=== PATIENT | male | born 1945 | race Caucasian/White ===

== ENCOUNTER → 2020-08-25 08:40 | Outpatient (CLI) | payer MEDICARE, OTHER, SELFPAY ==
--- NOTE | 2020-08-25 | DI.MRI.S_ITS ---
PROCEDURE: MR BRAIN (IAC) WWO CON INDICATIONS: Sensorineural hearing loss, unilateral, right ear, TECHNIQUE: Noncontrast sagittal T1 spin echo, axial FLAIR, axial gradient echo, axial diffusion and ADC through the brain. Axial thin-slice 3D CISS, coronal TruFISP, axial T1 spin echo with fat saturation through the internal auditory canals. After the administration of contrast, thin slice axial and coronal T1 spin echo with fat saturation through the internal auditory canals, and axial T1 spin echo with fat saturation through the brain. COMPARISON: [facility], MR, BRAIN WITH AND WITHOUT CONTRAS, 11/14/2011, 10:01. FINDINGS: Image quality: Excellent. Cerebellopontine angles: No cerebellopontine angle masses. Inner ear structures appear normally formed. No suspicious enhancement in the internal auditory canal or along the course of the 7th cranial nerve. CSF spaces: Ventricles are normal in size and shape. No extra-axial fluid collections. Basal cisterns are patent. Brain: No intracranial bleeds or mass effects. There is mild, diffuse cerebral volume loss. There are xfaa-tg-detbcila periventricular and subcortical white matter chronic microvascular ischemic changes. Calderon-white matter interface is intact. No abnormal intracranial enhancement. Diffusion weighted images demonstrate no acute ischemic insults. Brainstem appears normal. Normal intravascular flow voids are present. Skull and face: Calvarial marrow signal is normal. Orbits appear normal. Sinuses: Sinuses and mastoids are clear. IMPRESSION: 1. No evidence of vestibular schwannoma. 2. No acute intracranial disease process. 3. No abnormal intracranial mass or mass effect. 4. No suspicious postcontrast enhancement. 5. Mild, diffuse cerebral volume loss. 6. Rqhe-ds-ktnnksfj periventricular and subcortical white matter chronic microvascular ischemic change. Dictated by: Berkley Chan MD, PhD on 08/25/2020 at 12:30 Approved by: Berkley Chan MD, PhD on 08/25/2020 at 12:34
== END ==
PROVIDERS: PCP Family Medicine; Referring Provider Family Medicine; Visit Provider Otolaryngology
DX: H90.41 Sensorineural hearing loss, unilateral, right ear, with unrestricted hearing on the contralateral side (principal)
CPT/HCPCS: 70553

== ENCOUNTER → 2021-02-23 12:45 | Outpatient (CLI) | payer MEDICARE, OTHER, SELFPAY ==
--- NOTE | 2021-02-23 | DI.RAD.S_ITS ---
PROCEDURE: FL BARIUM SWALLOW W AIR COMPARISON: None. INDICATIONS: Other dysphagia FINDINGS: No definite focal stricture. No mucosal abnormalities identified. There is a small hiatal hernia. There is esophageal dysmotility and prolonged esophageal clearance. Normal transit of a calibrated barium tablet. IMPRESSION: Esophageal dysmotility. Small hiatal hernia. Dictated by: Delfino Reich M.D. on 02/23/2021 at 14:41 Approved by: Delfino Reich M.D. on 02/23/2021 at 14:44
== END ==
PROVIDERS: PCP Family Medicine; Referring Provider Family Medicine; Visit Provider Family Medicine
DX: R13.19 Other dysphagia (principal); K22.4 Dyskinesia of esophagus; K44.9 Diaphragmatic hernia without obstruction or gangrene
CPT/HCPCS: 74221

== ENCOUNTER → 2021-07-19 08:01 | Outpatient (CLI) | payer MEDICARE, OTHER, SELFPAY ==
--- NOTE | 2021-07-19 08:03 | DI.RAD.S_ITS ---
PROCEDURE: FL WRIST INJECTION MR/CT LT INDICATIONS: SCAPHOLUNATE INSTABILITY,LEFT WRIST COMPARISON: [facility], MR, MR WRIST LT W CON, 07/19/2021, 8:41. TECHNIQUE: After informed consent had been obtained, the wrist was examined fluoroscopically, and a site chosen for injection of the radiocarpal compartment from a dorsal approach. Skin was prepped and draped in a sterile fashion and 1% lidocaine infiltrated from the skin down to the articular surface. A hypodermic needle was then introduced into the articular space and a modest amount of contrast medium was instilled confirming intra-articular needle tip placement. This was followed by approximately 4 mL of a dilute gadolinium solution. Needle was removed and dressing was applied. The patient experienced no complications throughout the procedure and left the fluoroscopic suite in no apparent distress. FINDINGS: A single fluoroscopic spot image demonstrates intra-articular location to injected iodinated contrast. IMPRESSION: Successful fluoroscopic-guided administration of dilute Gadolinium solution for wrist MR arthrogram. Dictated by: Malik Poole M.D. on 07/19/2021 at 11:19 Approved by: Malik Poole M.D. on 07/19/2021 at 11:19
--- NOTE | 2021-07-19 08:03 | DI.MRI.S_ITS ---
PROCEDURE: MR WRIST LT W CON INDICATIONS: SCAPHOLUNATE INSTABILITY,LEFT WRIST TECHNIQUE: After the administration of 3-4 mL of dilute intra-articular Gadolinium contrast into the radiocarpal compartment, coronal T1 spin echo with fat saturation and T2 fast spin echo with fat saturation, axial T1 spin echo and T2 fast spin echo with fat saturation, sagittal T1 spin echo with and without fat saturation through the wrist. COMPARISON: None. FINDINGS: Image quality: Excellent. Bones and cartilage: Widening of the scapholunate interval, compatible with ligamentous injury. Subchondral edema in the distal aspect of the scaphoid. Osteophytosis of the trapezium. The remaining visualized osseous structures appear maintained. Carpal ligaments: The lunotriquetral ligament intact, without gadolinium extravasation into the mid-carpal compartment. The radioscaphocapitate and radiolunotriquetral ligaments appear intact. The dorsal intercarpal and radiotriquetral ligaments appear intact. On sagittal images, the pisohamate ligament appears intact. Triangular fibrocartilage complex: Linear T2 hyperintense signal within the TFCC, compatible with tear. Gadolinium extravasation into the distal radioulnar joint. The ulnar collateral ligament appears intact. The extensor carpi ulnaris tendon is normal in location and morphology. Tendons and soft tissues: The carpal tunnel structures appear normal, including the median nerve. Contrast effaces Guyon's canal. The ulnar nerve is not well seen. All six extensor tendon compartments demonstrate normal morphology, without pathologic tendon sheath fluid. IMPRESSION: 1. Widening of the scapholunate interval with ligamentous injury. 2. TFCC tear as detailed above. Dictated by: Lucas Isaac M.D. on 07/19/2021 at 11:14 Approved by: Lucas Isaac M.D. on 07/19/2021 at 11:24
== END ==
PROVIDERS: PCP Family Medicine; Referring Provider Orthopaedic Surgery; Visit Provider Orthopaedic Surgery
DX: S63.592A Other specified sprain of left wrist, initial encounter (principal); M25.332 Other instability, left wrist
CPT/HCPCS: 20605; 73222; 76000

== ENCOUNTER → 2021-08-29 14:13 | Outpatient (CLI) | payer MEDICARE, OTHER, SELFPAY ==
--- NOTE | 2021-08-29 | DI.MRI.S_ITS ---
PROCEDURE: MR SHOULDER LT WO CON INDICATIONS: Pain in left shoulder TECHNIQUE: Noncontrast oblique coronal T2 fast spin echo with fat saturation, oblique sagittal T1 spin echo and T2 fast spin echo with fat saturation, axial T1 spin echo and T2 fast spin echo with fat saturation through the shoulder. COMPARISON: None. FINDINGS: Image quality: Excellent. Rotator cuff: Supraspinatus tendinopathy with small partial articular surface and bursal surface tears, causing thinning of the tendon at the humeral attachment (7-13). Infraspinatus tendinopathy with small partial articular surface and interstitial tears. No significant abnormality of the subscapularis tendon. Sagittal images demonstrate no significant muscle atrophy. Bones and bursae: No bone marrow contusions or fractures. Small focus of fibrocystic change in the posterior aspect of the glenoid. Ipdk-yd-uykpgwrc acromioclavicular joint degeneration with T2 hyperintense signal within the articulation. No os acromiale. Trace subacromial-subdeltoid bursal fluid is present. Capsule and soft tissues: Small focus of T2 hyperintense signal within the posterior labrum (5-13), which may reflect a degenerative tear. The long head of the biceps tendon demonstrates normal location and morphology. The rotator interval appears normal, without fibrosis. The coracohumeral ligament is normal in thickness. IMPRESSION: 1. Supraspinatus tendinopathy with small partial articular surface and bursal surface tears, causing thinning of the tendon at the humeral attachment. 2. Infraspinatus tendinopathy with small partial articular surface and interstitial tears. 3. Degenerative tear in the posterior labrum with small focus of fibrocystic change of the glenoid. 4. Vqex-vk-vybvmbnx AC joint degeneration as detailed above. Dictated by: Lucas Isaac M.D. on 08/29/2021 at 15:16 Approved by: Lucas Isaac M.D. on 08/29/2021 at 16:27
== END ==
PROVIDERS: PCP Family Medicine; Referring Provider Orthopaedic Surgery; Visit Provider Orthopaedic Surgery
DX: M75.112 Incomplete rotator cuff tear or rupture of left shoulder, not specified as traumatic (principal); S43.492A Other sprain of left shoulder joint, initial encounter; M25.512 Pain in left shoulder
CPT/HCPCS: 73221

== ENCOUNTER 2025-05-10 11:17 | Inpatient (IN) | payer MEDICARE, OTHER, SELFPAY ==
[2025-05-10] VITALS (10 sets, daily range): BP systolic 123–191; BP diastolic 70–102; PULSE 45–70; RESP 12–20; TEMP 36.3–37.3; O2SAT 91–98; BMI 22.7
--- NOTE | 2025-05-10 11:30 | EKG_ITS ---
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
--- NOTE | 2025-05-10 11:31 | DI.RAD.S_ITS ---
PROCEDURE: XR CHEST 1V INDICATIONS: Chest Pain TECHNIQUE: One view of the chest was acquired. COMPARISON: None. FINDINGS: Surgical changes and devices: None. Lungs and pleura: Lungs are clear. No pleural effusions or pneumothorax. Mediastinum: Mediastinal contours appear normal. Heart size is normal. Bones and chest wall: No suspicious bony lesions. Overlying soft tissues appear unremarkable. IMPRESSION: No acute cardiopulmonary abnormality is seen. Dictated by: Delfino Lezama M.D. on 05/10/2025 at 14:07 Approved by: Delfino Lezama M.D. on 05/10/2025 at 14:07
[2025-05-10 11:43] LABS: Add Manual Diff / Slide Review NO; Hematocrit 37.6 % (41-53); Hemoglobin 12.7 g/dL (13.5-17.5); Lymphocytes Absolute Auto 500 /uL (1100-4500); Mean Corpuscular HGB Conc 33.7 % (30-36); Mean Corpuscular Hemoglobin 29.1 PG (26-34); Mean Corpuscular Volume 86.3 fL (80-100); Platelet Count 185 X10^3/uL (150-400)
[2025-05-10 11:51] LABS: INR 1.0 (0.9-1.3); Prothrombin Time 11.0 SECONDS (9.4-12.5)
[2025-05-10 11:54] LABS: PTT Partial Thromboplastin Tim 30 SECONDS (25.1-36.5)
[2025-05-10 11:56] LABS: Alanine Aminotransferase 26 IU/L (<50); Albumin 4.6 g/dL (3.5-5.0); Albumin Globulin Ratio 1.4 (1.0-2.8); Alkaline Phosphatase 84 U/L (38-126); Blood Urea Nitrogen 32 mg/dL (9-20); Calcium 9.3 mg/dL (8.4-10.2); Carbon Dioxide 24 mmol/L (22-32); Chloride 105 mmol/L (98-107); Creatine Kinase 52 U/L (55-170); Estimated Glomerular Filt Rate 56 mL/min (>60); Globulin 3.2 g/dL (1.7-4.1); Glucose 113 mg/dL (70-99); HEMOLYSIS 18 (0-50); Lipase 81 U/L (23-300); Magnesium 1.8 mg/dL (1.6-2.3); Potassium 4.5 mmol/L (3.4-5.1); Sodium 138 mmol/L (137-145); Total Protein 7.8 g/dL (6.3-8.2)
--- NOTE | 2025-05-10 12:04 | ED_ITS ---
HPI - Chest Pain General Chief Complaint: Chest Pain Stated Complaint: Chest tightness, burning on and off for 2 weeks Time Seen by Provider: 05/10/25 12:03 Source: patient, RN notes reviewed and old records reviewed Mode of arrival: Ambulatory Limitations: no limitations History of Present Illness HPI narrative: 80-year-old male history of coronary artery disease with prior cardiac stent in 2010 aspirin, hypertension, dyslipidemia, BPH presents with complaint of several weeks of substernal tightness, burning and heaviness patient states that is intermittent sometimes related to exertion but not always he sometimes noticed at nighttime as well. He denies any shortness of breath, no diaphoresis. No fevers or chills. No nausea or vomiting, no foul taste in the back in his throat. No new swelling of extremities. He notes he has had decreased energy in the last several weeks. He states he does have a history of heartburn states that is sometimes it seems to occur when he is flat but states this does feel different than his heartburn. He states it feels a little bit like when he had his cardiac stent in 2010 but not exactly the same. He states home medications are aspirin, omeprazole, enalapril, carvedilol, atorvastatin, alfuzosin, oxybutynin, finasteride. Patient has a rotator cuff x2, hernia repair x2 and cardiac stent. Smokes 1-2 cigarettes daily stopped in the last 2 weeks, drinks 1-2 alcoholic drinks daily uses marijuana but no other recreational drugs. Primary care is Dr. Mina, he follows with Cardiology Dr. Maher at [facility]. Last episode was last night he reached out to his level designer who told him to come to the ER for evaluation. Related Data Allergies Allergy/AdvReac Type Severity Reaction Status Date / Time Penicillin Allergy Unknown Uncoded 05/10/25 11:27 Review of Systems Review of Systems ROS Unobtainable: All systems reviewed & are unremarkable except as noted in HPI and below Patient History Social History Smoking Status: Never smoker Smoking Status: Never smoker Exam Narrative Exam Narrative: GENERAL: Alert and oriented x three, male in mild distress HEENT: Head normocephalic, atraumatic, EOMI, pupils reactive, face symmetric, moist mucous membranes NECK: Supple, full range of motion CARDIOVASCULAR: Regular rate and rhythm without murmurs, rubs or gallops. No JVD. No edema bilateral lower extremities. RESPIRATORY: Breath sounds equal bilaterally, no wheezes rales or rhonchi. No tachypnea or accessory muscle use ABDOMEN: Soft, nontender. Normoactive bowel sounds all 4 quadrants. No guarding or rebound, rigidity, no mass : No CVA tenderness EXTREMITIES: Normal range of motion, no clubbing or edema. Neurovascularly intact NEUROLOGICAL: Cranial nerves II through XII grossly intact. Moving all extremities SKIN: Warm, dry, no petechiae, no rashes or lesions. Initial Vital Signs Initial Vital Signs: Vital Signs Temperature 97.9 F 05/10/25 11:27 Pulse Rate 70 05/10/25 11:27 Respiratory Rate 17 05/10/25 11:27 Blood Pressure 123/76 05/10/25 11:27 Pulse Oximetry 97 05/10/25 11:27 Oxygen Delivery Method Room Air 05/10/25 11:27 Scores HEART Score Heart Score history: Moderately Suspicious Heart Score EKG: Normal Heart Score Age: > or = 65 years old Heart Score risk factors: > 3 risk factors or hx of atherosclerotic disease Heart Score troponin: < or = to normal limit Heart Score Total: 5 Course Orders Ordered: ED Orders 05/10/25 11:31 XR chest 1V Stat EKG-12 Lead Stat 05/10/25 11:35 Complete Blood Count AUTO DIFF Stat Comprehensive Metabolic Panel Stat Lipase Stat Magnesium Stat NT-proBNP (BNP-Adult 18+) Stat PTT Partial Thromboplastin Chin Stat Prothrombin Time INR Stat Troponin & CK Cardiac Panel Stat 05/10/25 13:33 EKG-12 Lead Stat 05/10/25 13:35 Trop I [Troponin I] Stat Discontinued Medications Aspirin (Aspirin 81 Mg Chew Tab) 324 mg PO NOW ONE Stop: 05/10/25 11:32 Last Admin: 05/10/25 12:18 Dose: 243 mg Documented By: SHANAE Vital Signs Vital signs: Vital Signs - 8 hr 05/10/25 11:27 Temperature 97.9 F Pulse Rate 70 Respiratory Rate 17 Blood Pressure 123/76 Pulse Oximetry 97 Oxygen Delivery Method Room Air MDM - Chest Pain Lab Data 05/10/25 11:35 05/10/25 11:35 Labs: Lab Results 05/10/25 05/10/25 Range/Units 11:35 13:35 WBC 5.3 (4.5-11.0) X10^3/uL RBC 4.36 L (4.5-5.9) X10^6/uL Hgb 12.7 L (13.5-17.5) g/dL Hct 37.6 L (41-53) % MCV 86.3 (80-100) fL MCH 29.1 (26-34) PG MCHC 33.7 (30-36) % RDW 15.1 H (11.6-14.8) % Plt Count 185 (150-400) X10^3/uL Neut % (Auto) 78.9 H (50-75) % Lymph % (Auto) 9.2 L (25-40) % [place] % (Auto) 8.3 (3-14) % Eos % (Auto) 2.7 (2-4) % Baso % (Auto) 0.9 (0-2) % Neut # (Auto) 4200 (7349-1296) /uL Lymph # (Auto) 500 L (3843-7699) /uL [place] # (Auto) 400 (0-900) /uL Eos # (Auto) 100 (0-450) /uL Baso # (Auto) 100 (0-100) /uL PT 11.0 (9.4-12.5) SECONDS INR 1.0 (0.9-1.3) APTT 30 (25.1-36.5) SECONDS Sodium 138 (137-145) mmol/L Potassium 4.5 (3.4-5.1) mmol/L Chloride 105 (98-107) mmol/L Carbon Dioxide 24 (22-32) mmol/L BUN 32 H (9-20) mg/dL Creatinine 1.30 H (0.66-1.25) mg/dL Estimated GFR 56 L (>60) mL/min BUN/Creatinine Ratio 24.6 H (6-22) Glucose 113 H (70-99) mg/dL Calcium 9.3 (8.4-10.2) mg/dL Magnesium 1.8 (1.6-2.3) mg/dL Total Bilirubin 0.5 (0.2-1.3) mg/dL AST 32 (17-59) IU/L ALT 26 (<50) IU/L Alkaline Phosphatase 84 (38-126) U/L Total Creatine Kinase 52 L (55-170) U/L Troponin I < 0.012 < 0.012 (0.01-0.034) ng/mL NT-Pro-B Natriuret Pep 98 (<450) pg/mL Total Protein 7.8 (6.3-8.2) g/dL Albumin 4.6 (3.5-5.0) g/dL Globulin 3.2 (1.7-4.1) g/dL Albumin/Globulin Ratio 1.4 (1.0-2.8) Lipase 81 (23-300) U/L [facility] Narrative Medical decision making narrative: Labs white count 5.3 hemoglobin of 12.7 platelets are 185, coags are appropriate creatinine is 1.3, BUN is little elevated at 32 glucose is 113 LFTs are normal CK is 52 with a troponin less than 0.012 and a BNP of 98. Lipase is 81. Repeat troponins less than 0.012 Chest x-ray shows no acute cardiopulmonary abnormality. EKG shows sinus rhythm, rate of 60 NM 184 QRS 86 QTC of [address]- elevation or depression. No prior for comparison. EKG 2. Shows sinus bradycardia rate of 51 NM 196 QRS 84 QTC of 403, no acute ST- elevation depression. No dynamic changes compared to prior from earlier today Patient had aspirin. 80-year-old male with substernal chest pain intermittent asymptomatic currently does have a history of coronary artery disease with cardiac stent. Patient's heart score is elevated. Spoke with cardiology, Dr. Perez @ [phone]. Recommends keeping patient for chest pains labs new med stress test. Spoke with Dr. Mondragon, hospitalist at 2:36 p.m. who accepts for observation. Spoke with the patient he is agreeable Discharge Plan Departure Patient Disposition: Admitted as Observation Clinical Impression: Chest pain
[2025-05-10 12:08] LABS: NT-proBNP (BNP-Adult 18+) 98 pg/mL (<450); Troponin I < 0.012 ng/mL (0.01-0.034)
[2025-05-10] MEDS: ASPIRIN 81 MG CHEW TAB 324 MG PO (12:18)
--- NOTE | 2025-05-10 13:33 | EKG_ITS ---
[place] [id number] [place] [id number] Test Date: 2025-05-10 Pat Name: Ish Mcdaniel Department: [facility] Room: Gender: Male Clinical Administrative Coordinator: MODESTA ASCENCIO : 1945 Requested By: Order Number: [id number] Reading MD: Bashir Beltrán MD Measurements Intervals [place] Rate: 51 P: 18 CA: 196 QRS: -14 QRSD: 84 T: 36 QT: 438 QTc: 403 Interpretive Statements Sinus bradycardia Electronically Signed On 05-10-2025 14:35:06 PST by Bashir Beltrán MD
[2025-05-10 14:08] LABS: Troponin I < 0.012 ng/mL (0.01-0.034)
--- NOTE | 2025-05-10 14:53 | P.HP_ITS ---
History of Present Illness History of Present Illness Date Patient Seen: 05/10/25 Time Patient Seen: 17:22 Chief complaint: Chest tightness, burning on and off for 2 weeks Narrative: HPI: This is a 80-year-old male with history of CAD and a cardiac stent in 2010 at [facility] in [place]. His plate finisher is Dr. Maher. He was a strong family history of premature heart disease and premature myocardial infarctions in his father and uncles. He also has history of hypertension, dyslipidemia, and BPH. The presents with intermittent chest pain for 2 weeks. This is described as a left-sided chest pain. It was not clearly exertional or relieved with rest. He denies any pleuritic component. No leg edema or shortness a breath. There are no associated symptoms of nausea, dyspnea, or diaphoresis. The patient had a normal ECG and troponin in the ED, was discussed with Cardiology who recommended a stress test. The patient did have an abnormal stress test prior to his last stent. He was had no cardiac stratification testing since his stent in 2010. ROS: All else reviewed and otherwise unremarkable except as noted in the history and physical. O: T 97.9?, BP 151/78, pulse 50, respiration 12, SpO2 91% room air. NAD, alert and oriented, fluent speech, calm. Normocephalic skull, EOMI, anicteric sclera, symmetric pupils. Oropharynx unremarkable, no droop. Neck supple, midline trachea, no adenopathy. Lungs clear, normal rate and effort. Heart regular, no murmur gallop or rub. Abdomen is soft, non distended and non tender. Extremities are free of edema. Skin is free of rash or lesions. Joints are not swollen or deformed. Judgment appears to be normal. ECG: Intervals [place] Rate: 51 P: 18 OR: 196 QRS: -14 QRSD: 84 T: 36 QT: 438 QTc: 403 Interpretive Statements Sinus bradycardia IMAGING: CXR: No acute cardiopulmonary abnormality is seen. A/P. 1. Chest pain, stuttering. 2. CAD with history of stent. 3. Labile hypertension, active. 4. Hyperlipidemia, active. PLAN: -resume usual medications and monitor blood pressure. -NPO at midnight, troponin in a.m.. -stress test tomorrow. He was full resuscitation, confirmed today. is proxy decision maker. He was in [place]. [facility] Social History household members: spouse Smoking Status: Never smoker Meds Home Medications and Allergies Allergies Allergy/AdvReac Type Severity Reaction Status Date / Time Penicillins Allergy Unknown Verified 05/10/25 15:08 Exam Vital Signs (past 8 hours): - 05/10/25 11:27 Temperature 97.9 F Pulse Rate 70 Respiratory Rate 17 Blood Pressure 123/76 Pulse Oximetry 97 Oxygen Delivery Method Room Air Oxygen Delivery Method Room Air Objective Labs 05/10/25 11:35 05/10/25 11:35 Labs: Laboratory Results - last 24 hr 05/10/25 05/10/25 11:35 13:35 WBC 5.3 RBC 4.36 L Hgb 12.7 L Hct 37.6 L MCV 86.3 MCH 29.1 MCHC 33.7 RDW 15.1 H Plt Count 185 Neut % (Auto) 78.9 H Lymph % (Auto) 9.2 L [place] % (Auto) 8.3 Eos % (Auto) 2.7 Baso % (Auto) 0.9 Neut # (Auto) 4200 Lymph # (Auto) 500 L [place] # (Auto) 400 Eos # (Auto) 100 Baso # (Auto) 100 PT 11.0 INR 1.0 APTT 30 Sodium 138 Potassium 4.5 Chloride 105 Carbon Dioxide 24 BUN 32 H Creatinine 1.30 H Estimated GFR 56 L BUN/Creatinine Ratio 24.6 H Glucose 113 H Calcium 9.3 Magnesium 1.8 Total Bilirubin 0.5 AST 32 ALT 26 Alkaline Phosphatase 84 Total Creatine Kinase 52 L Troponin I < 0.012 < 0.012 NT-Pro-B Natriuret Pep 98 Total Protein 7.8 Albumin 4.6 Globulin 3.2 Albumin/Globulin Ratio 1.4 Lipase 81 Assessment & Plan Time-Based Coding :: 35 min spent with patient and on the chart (including review of chart, obtaining history, exam, reviewing outside data, placing orders, documenting exam and treatment plan, and counseling patient) on 05/10. Quality MIPS - Admit I confirm the patient?s Advance Care Plan is present, Code status is documented, Surrogate decision maker is in patient?s record [If Yes, STOP here]: Yes MIPS - Meds 'Current medications' to include all prescriptions, tveh-lnt-dcdlumz products, herbals, cannabis/cannabidiol products, and vitamin/mineral/dietary (nutritional) supplements. I have utilized all available resources to obtain, update, or review the patient?s current medications. [If Yes, STOP here]: Yes
--- NOTE | 2025-05-10 15:37 | PC.NURSE ---
1530 today pt brought to room 10
--- NOTE | 2025-05-10 15:57 | PC.NURSE ---
attempted to call report, no answer --[phone]
--- NOTE | 2025-05-10 17:11 | CM.DANOTE ---
DCP Assessment Note: Pt is a 80yo male, resident of [place], is admitted for chest tightness. Pt lives in a house with his , Jojo. Pt's Primary Care Provider is Wendi Mina DNP, APRN and insurance is Medicare and [employer]. Technical Operations Vice President is Dr. Maher at [facility]. Reviewed chart and discussed with multidisciplinary team pt's medical status and initial discharge needs. DCP met w/patient at bedside; introduced self and role. Patient was found in bed, alert and oriented, cooperative with assessment. Pt confirmed living situation and good support in . Pt expressed preference in discharge home if stress test cleared. Pt has a history of a stent placement but no SNF Rehab or home health. No discharge needs anticipated. Plan: Anticipating discharge home with spouse, pending stress test. CM team will follow closely for coordination of discharge plans. LENA Collado Discharge Planning/Care Management CM Discharge Assessment Start: 05/10/25 14:43 Freq: Status: Active Protocol: Document 05/10/25 16:52 MW (Rec: 05/10/25 17:08 MW [id number]) Discharge Planning Assessment Assigned Discharge BHARTI Thomason Client Care Coordinator Provider Wendi Mina DNP, WILFRID, AUTO PARKER-C Insurance Medicare,[employer] DPOA/Assigned Jojo Ann, Spouse Designee Name Contact Information [phone] Advance Directives? No History Provided By Patient,Medical Record Has Patient been No admitted in last 30 days? Prior Living House Arrangements Household Members spouse Type of Drives own vehicle transporation used prior to admit Independent with ADL Yes 's Is patient alert and Yes oriented? Discharge Plan Home Transportation Spouse Arrangement Review Status In Process Please Provide Date 05/10/25 Initial DC Assessment Was Performed Next Review Type Continued Stay Review
--- NOTE | 2025-05-10 17:29 | PC.NURSE ---
pt, with management approval had to be moved from bed 10 to song, while waiting for room to be cleaned in acute care, was moved to floor ~1700
--- NOTE | 2025-05-10 17:45 | PC.NURSE ---
Patient admitted to room 224 for chest pain, tele placed. Patient denies any chest pain now. He is independent in his room and able to ambulate fine. Patient knows to call if he needs anything. Skin check done and he is eating dinner now.
[2025-05-10] MEDS: ENALAPRIL 5 MG TABLET 10 MG PO (18:21)
[2025-05-10] MEDS: PANTOPRAZOLE DR 20 MG TABLET PO (20:44)
[2025-05-10] MEDS: ATORVASTATIN 20 MG TABLET PO (20:44)
[2025-05-11 03:00] VITALS: BP 134/82; PULSE 53; RESP 18; TEMP 37.4; O2SAT 93
--- NOTE | 2025-05-11 05:00 | DI.NM.S_ITS ---
PROCEDURE: NM MADHURI PERF SPECT REST & STR Rest and exercise myocardial perfusion SPECT with gated imaging and ejection fraction RADIOPHARMACEUTICAL: 10.9 mCi Tc-99m sestamibi IV at rest and 26.9 mCi Tc-99m sestamibi IV at peak exercise. A 1 day-protocol was performed. INDICATIONS: Chest pain TECHNIQUE: Radiopharmaceutical was injected at peak stress test, and also at rest. SPECT images were obtained. SPECT myocardial perfusion images were displayed in short axis, horizontal long axis, and vertical long axis views. Gated images were reviewed using SMGBB software. COMPARISON: None. CARDIAC STRESS: A standard Brijesh treadmill exercise tolerance test was performed by the patient under the supervision of an attending staff. The patient exercised for 5 minutes and 55 seconds; 7.0 METS; functional aerobic impairment (UNA) is -9%. Hemodynamic data: There is normal blood pressure and heart rate response to exercise stress. Peak blood pressure 162/98. Patient achieved 86% of maximum predicted heart rate at peak exercise. Symptoms: Patient reported chest pain during exercise that resolved in recovery. EKG: No diagnostic EKG changes of ischemia; rare PVCs in recovery. FINDINGS: Raw data: There is good myocardial labeling by radiotracer. Left ventricle function: Gated images demonstrate normal left ventricle wall thickening. No segmental wall motion abnormality. No transient ischemic dilation; TID is 0.89 (normal less than 1.3). The left ventricle resting end-diastolic volume is 66 mL. Left ventricle stress ejection fraction is 70%; normal values are above 45%. Myocardial perfusion: There is a large sized, moderate to severe intensity reversible anterior and septal wall defect. IMPRESSION: Abnormal study. The large size, moderate to severe intensity reversible anterior and septal wall defect suggest exercise-induced ischemia. Normal LV size and function. No evidence of exercise-induced ECG changes. The patient did report exercise-induced chest discomfort that was limiting and resolved in recovery. Normal hemodynamic response. Good exercise capacity. Result discussed with Dr. Jim Mondragon. Dictated by: Talita Eubanks D.O. on 05/11/2025 at 12:58 Approved by: Talita Eubanks D.O. on 05/11/2025 at 13:03
[2025-05-11 05:28] LABS: Troponin I < 0.012 ng/mL (0.01-0.034)
[2025-05-11 05:59] VITALS: BP 142/80
[2025-05-11] MEDS: ENALAPRIL 5 MG TABLET 10 MG PO (05:59)
[2025-05-11 07:00] VITALS: BP 148/80; PULSE 59; RESP 17; TEMP 36.4; O2SAT 95
--- NOTE | 2025-05-11 08:13 | DI.ECHO.S_ITS ---
[facility] : : [address] : : [place] : : [id number] : : Phone: [phone] Echocardiogram Report + + :Name: JAMES WAGNER Study Date: 05/11/2025 Height: 67 in : :[facility] ReadingLocation: Weight: 145 lb : : Gender: Male BSA: 1.8 m2 : :: 1945 Age: 80 yrs BP: 148/80 mmHg: :Reason For Study: CHEST PAIN : :Ordering Physician: LAURY, : :BRIGITTE Trujillo Performed By: Goyo Delgado : :Referring: BRIGITTE SCHAEFFER : + + Interpretation Summary - The left ventricular contractility is normal. Estimated ejection fraction is greater than 60% with no segmental wall motion abnormalities. Mild concentric LVH. Grade 2 diastolic dysfunction. - The right ventricular contractility is normal. - Mild left atrial enlargement. The right ventricle is also mildly dilated. The right atrium and left ventricle are of normal size. - There is moderate to severe mitral annular calcifications with moderate fibrocalcific changes noted on the mitral valve. No significant stenosis is noted. However mild prolapse of the anterior mitral valve leaflet is present. Mild mitral regurgitation present. - Trace to mild tricuspid insufficiency with estimated pulmonary systolic artery pressures of 44 mmHg. - No obvious intracardiac shunts. - No obvious intracardiac masses nor thrombi. - No hemodynamically significant pericardial effusion. - Low right-sided filling pressures. Conclusion: Normal biventricular systolic function with degenerative changes of the mitral valve with associated prolapse and mild regurgitation. Procedure: A two-dimensional transthoracic echocardiogram with color flow and Doppler was performed. The study quality was technically good. There is no prior echocardiogram noted for this patient. The patient was in normal sinus rhythm during the exam. Left Ventricle: The left ventricle is normal in size. Left ventricular wall thickness is mildly increased. There is no ventricular septal defect visualized. The ejection fraction is estimated to be 60-65%. There are no focal wall motion abnormalities. Grade II diastolic dysfunction with elevated left atrial pressure. Right Ventricle: The right ventricle is mildly dilated. The right ventricular systolic function is normal. Atria: The left atrium is mildly dilated. Right atrial size is normal. There is no Doppler evidence for an interatrial shunt. Mitral Valve: There is moderate to severe mitral annular calcification. The mitral valve leaflets are moderately calcified. There is mild mitral valve prolapse. There is mild mitral regurgitation. Aortic Valve: The aortic valve is trileaflet. The aortic valve opens well. The aortic valve is mildly calcified. No aortic regurgitation is present. Tricuspid Valve: The tricuspid valve leaflets are thin and pliable. There is mild tricuspid regurgitation. The right ventricular systolic pressure is estimated to be at least 44 mmHg based on an estimated right atrial pressure of 8 mm Hg. Pulmonic Valve: The pulmonic valve is not well seen, but is grossly normal. There is trace pulmonic regurgitation. Great Vessels: The aortic root is normal size. The ascending aorta is mildly enlarged. The pulmonary artery is normal size. The IVC is dilated (diameter is greater than 2.1 cm) yet it collapses greater than 50% with a sniff. This suggests a right atrial pressure of 8 mm Hg. Pericardium/ Pleura There is no pericardial effusion. There is no pleural effusion. MMode/2D Measurements & Calculations LVIDd: 4.3 cm LVOT diam: 1.9 cm LVIDs: 2.9 cm Ao root diam: 3.2 cm FS: 32.4 % asc Aorta Diam: 3.7 cm EPSS: 0.78 cm IVSd: 1.2 cm LVPWd: 0.99 cm LV farr. diameter/BSA (cm/m^2): 2.5 LV sys. diameter/BSA (cm/m^2): 1.7 LA A2 area: 23.0 cm2 RA long axis: 5.0 cm LA A4 area: 21.4 cm2 RA area: 16.7 cm2 LA length (vol): 5.7 cm RA vol: 47.5 ml LA vol: 73.7 ml RA : 26.9 ml/m2 LA vol index: 41.8 ml/m2 IVC diam: 2.0 cm RVD1 (basal): 4.3 cm RVD2 (mid): 3.6 cm TAPSE: 3.0 cm Doppler Measurements & Calculations Ao V2 max: 130.4 cm/sec LVOT Max Juarez: 98.3 cm/sec Ao V2 mean: 89.2 cm/sec LV V1 max P.9 mmHg Ao max P.8 mmHg LV V1 VTI: 20.6 cm Ao mean P.6 mmHg PILO(I,D): 2.0 cm2 Ao V2 VTI: 30.3 cm PILO(V,D): 2.2 cm2 sev ratio: 0.68 PILO indexed to BSA (cm^2/m^2): 1.1 MV E max juarez: 79.9 cm/sec TR max juarez: 298.6 cm/sec MV A max juarez: 104.3 cm/sec TR max P.7 mmHg MV E/A: 0.77 PA V2 max: 118.6 cm/sec Med Peak E' Juarez: 4.3 cm/sec PA V2 mean: 76.0 cm/sec E/E' med: 18.6 PA mean P.6 mmHg Lat Peak E' Juarez: 4.7 cm/sec PA pr(Accel): 68.7 mmHg E/E' lat: 16.9 E/e' average: 17.7 MV dec time: 0.29 sec SV(LVOT): 60.2 ml Reading Physician:VALERIA
[2025-05-11] MEDS: ACETAMINOPHEN 325 MG TABLET 650 MG PO (08:56)
[2025-05-11] MEDS: FINASTERIDE 5 MG TABLET PO (10:09)
[2025-05-11] MEDS: PANTOPRAZOLE DR 20 MG TABLET PO (10:09)
[2025-05-11 10:57] VITALS: BP 148/80; PULSE 59
[2025-05-11 11:00] VITALS: BP 129/80; PULSE 68; RESP 14; TEMP 36.4; O2SAT 97
--- NOTE | 2025-05-11 12:39 | PC.NURSE ---
1235: discharge instructions given and understood by pt. PIV removed. Portal Oxygen system given to patient for Home O2. escorted to private vehicle via wheelchair.
--- NOTE | 2025-05-11 14:16 | PM.DS.1 ---
History of Present Illness History of Present Illness Chief complaint: Chest tightness, burning on and off for 2 weeks Narrative: HPI: This is a 80-year-old male with history of CAD and a cardiac stent in [address] [facility] in [place]. 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 He was a strong family history of premature heart disease and premature myocardial infarctions in his father and uncles. He also has history of hypertension, dyslipidemia, and BPH. The presents with intermittent chest pain for 2 weeks. This is described as a left-sided chest pain. It was not clearly exertional or relieved with rest. He denies any pleuritic component. No leg edema or shortness a breath. There are no associated symptoms of nausea, dyspnea, or diaphoresis. The patient had a normal ECG and troponin in the ED, was discussed with Cardiology who recommended a stress test. The patient did have an abnormal stress test prior to his last stent. He was had no cardiac stratification testing since his stent in 2010. Hospital course: The patient present with stuttering chest pain in context of a previous coronary stent. The patient had serial negative troponins and underwent a stress test with Lexiscan on the day of transfer. This revealed reversible anterior ischemia. He was started on heparin drip and we will be transferred for coronary angiogram. O: T 96.7, BP 129/80, pulse 68, respiration 14, SpO2 97% room air. DISCHARGE EXAM: NAD, alert and oriented. Fluent speech. Lungs are clear, normal rate and effort. Heart is regular, no murmur gallop or rub. Abdomen is soft, non distended. Extremities are free of edema. ECG: Intervals [place] Rate: 51 P: 18 UT: 196 QRS: -14 QRSD: 84 T: 36 QT: 438 QTc: 403 Interpretive Statements Sinus bradycardia IMAGING: CXR: No acute cardiopulmonary abnormality is seen. STRESS TEST: Reversible anterior ischemia. A/P. 1. Unstable angina. 2. CAD with history of stent. 3. Labile hypertension, active. 4. Hyperlipidemia, active. PLAN: -heparin bolus and drip for unstable angina. -transfer to [facility] for coronary evaluation including angiogram. He is full resuscitation. is proxy decision maker. [N], the patient has documentation of a left ventricle ejection fracture less than or equal to 40%, or moderately or severely reduced left ventricle systolic function. [N], the patient has a history of heart transplant or left ventricular assist device (LVAD). [N], the patient was prescribed an KEATON inhibitor at discharge or is already being taken. The patient was not prescribed an KEATON-inhibitor because of the following exception:NA. [N], the patient was prescribed Metoprolol succinate, bisoprolol, or carvedilol at discharge. The patient was not prescribed Metoprolol succinate, bisoprolol, or carvedilol at discharge because of the following exception: NA. Discharge Providers Provider Date of admission: 05/10/25 14:38 Discharge Date: 05/11/25 Primary care physician: LAURENCE Hedrick Discharge provider: Jim Mondragon MD Exam Vital Signs (past 8 hours): - 05/11/25 07:00 05/11/25 10:57 05/11/25 11:00 Temperature 97.6 F 97.6 F Pulse Rate 59 L 59 L 68 Respiratory Rate 17 14 Blood Pressure 148/80 H 148/80 H 129/80 Pulse Oximetry 95 97 Oxygen Flow Rate 0 0 Oxygen Delivery Method Room Air Oxygen Flow Rate 0 Objective Labs 05/11/25 14:15 05/10/25 11:35 Labs: Laboratory Results - last 24 hr 05/11/25 04:32 Troponin I < 0.012 PFSH Social History household members: spouse Smoking Status: Former smoker alcohol intake: current Discharge Plan Discharge Plan Patient Disposition: Home Discharge orders & Medications Prescriptions: Continued carvedilol 6.25 mg tablet 6.25 mg PO BID atorvastatin 20 mg tablet 20 mg PO QPM enalapril maleate 10 mg tablet 10 mg PO Q12H Rx Instructions: Takes BID alfuzosin 10 mg tablet extended release 24 hr 10 mg PO DAILY esomeprazole magnesium 20 mg capsule,delayed release(DR/EC) 20 mg PO Q12H Rx Instructions: Takes BID oxybutynin chloride 5 mg tablet 5 mg PO ONCE PM finasteride 5 mg tablet 5 mg PO DAILY Follow up/Referrals: Wendi Mina ARNP [Primary Care Provider, Family Practice] Visit Report/Discharge Packet Stand Alone Forms: Patient Portal/API, Influenza Vaccine Info Discharge Data Primary Care Provider: Wendi Mina Attending Provider: Jim Mondragon Admit Date/Time: 05/10/25 14:38
[2025-05-11 14:26] LABS: Add Manual Diff / Slide Review NO; Hematocrit 40.1 % (41-53); Hemoglobin 13.6 g/dL (13.5-17.5); Lymphocytes Absolute Auto 400 /uL (1100-4500); Mean Corpuscular HGB Conc 33.9 % (30-36); Mean Corpuscular Hemoglobin 29.2 PG (26-34); Mean Corpuscular Volume 86.0 fL (80-100); Platelet Count 186 X10^3/uL (150-400)
[2025-05-11 14:38] LABS: PTT Partial Thromboplastin Tim 31 SECONDS (25.1-36.5)
[2025-05-11 14:50] LABS: INR 1.1 (0.9-1.3); Prothrombin Time 11.9 SECONDS (9.4-12.5)
--- NOTE | 2025-05-11 14:54 | CM.DPNOTE ---
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 per chart later in afternoon, in works to transfer pt, 1600? P: transfer to higher level of care, likely in [facility]. will continue to folllow if DCP needs should arise BHARTI Norton
[2025-05-11] MEDS: HEPARIN 5,000 UNIT/ML VIAL 4000 UNIT IV (15:26)
[2025-05-11] MEDS: HEPARIN DRIP 25,000 UNIT/500 ML IV.SOLN 15.785 UNIT IV (15:28)
--- NOTE | 2025-05-11 15:46 | PC.NURSE ---
Addendum entered by Rhett Schuster RN 05/11/25 16:21: 1620 - pt discharged with ambulance personale via stretcher with PIV and heparin gtts. Original Note: 1546 - Nursing report given to SILVA Wright from [facility]. Haparin gtts initiated at 1530.
== END 2025-05-11 16:20 | disposition home or self-care (01) | DRG 303 ==
LOC: ED 14:36 → AC 15:06
PROVIDERS: Admitting Provider Hospitalist; Emergency Provider Emergency Medicine; PCP Nurse Practitioner Family; Referring Provider Emergency Medicine; Visit Provider Hospitalist
DX: I25.110 Atherosclerotic heart disease of native coronary artery with unstable angina pectoris (principal); I10 Essential (primary) hypertension; E78.5 Hyperlipidemia, unspecified; N40.0 Benign prostatic hyperplasia without lower urinary tract symptoms; Z82.49 Family history of ischemic heart disease and other diseases of the circulatory system; Z95.5 Presence of coronary angioplasty implant and graft; Z87.891 Personal history of nicotine dependence
CPT/HCPCS: 36415; 71045; 78452; 80053; 82550; 83690; 83735; 83880; 84484; 85025; 85610; 85730; 93005; 93017; 93306; 99284; G0378; A9502; J1644